=== PATIENT | male | born 1970 | race Two or more races ===

== ENCOUNTER 2018-05-10 19:55 | Inpatient (IN) | payer MEDICAID, OTHER ==
[~2018-05-10] VITALS: Ht 170.2 cm; Wt 82.0 kg
[2018-05-10] MEDS ORDERED: OMNIPAQUE 350 MG/ML, 100ML BOTTLE ONE (20:42)
[2018-05-10 21:01] LABS: BASOPHILS # (AUTO) 0.05 x10^3/uL (0-0.1); BASOPHILS % (AUTO) 1 % (0-1); EOSINOPHILS # (AUTO) 0.14 x10^3/uL (0-0.4); EOSINOPHILS % (AUTO) 2 % (1-7); LYMPHOCYTES # (AUTO) 3.03 x10^3/uL (1-3.4); LYMPHOCYTES % (AUTO) 36 % (22-44); MD NO; MEAN CORPUSCULAR HEMOGLOBIN 30.8 pg (27.5-34.5); MEAN CORPUSCULAR HGB CONC 34.3 g/dL (33.2-36.2); MEAN CORPUSCULAR VOLUME 89.8 fL (81-97); MEAN PLATELET VOLUME 10.3 fL (7.4-10.4); MONOCYTES # (AUTO) 0.55 x10^3/uL (0.2-0.8); MONOCYTES % (AUTO) 7 % (2-9); NEUTROPHILS # (AUTO) 4.61 x10^3/uL (1.8-6.8); NEUTROPHILS % (AUTO) 55 % (42-75); PLATELET COUNT 187 x10^3/uL (130-400); RED BLOOD COUNT 5.26 x10^6/uL (4.38-5.82); RED CELL DISTRIBUTION WIDTH 12.3 % (9.4-14.8)
[2018-05-10 21:09] LABS: ALBUMIN 4.1 g/dL (3.4-5.0); ANION GAP 7 mmol/L (5-15); CALCIUM 8.3 mg/dL (8.5-10.1); CHLORIDE 108 mmol/L (98-107); CREATININE 0.74 mg/dL (0.7-1.3)
[2018-05-11 00:23] VITALS: BP 138/86
[2018-05-11] MEDS ORDERED: ONDANSETRON ODT 4 MG PO PRN (01:00)
[2018-05-11] MEDS ORDERED: POLYETHYLENE GLYCOL 17 GM PACKET PO PRN (01:00)
[2018-05-11] MEDS ORDERED: DOCUSATE 100 MG CAPSULE PO PRN (01:00)
[2018-05-11] MEDS ORDERED: ACETAMINOPHEN 325 MG TABLET PO PRN (01:00)
[2018-05-11] MEDS ORDERED: morphine SULFATE 10 MG/ML, 1ML IVPush PRN (01:00)
[2018-05-11] MEDS ORDERED: BISACODYL 10 MG SUPP PR PRN (01:00)
[2018-05-11] MEDS ORDERED: hydrALAzine 20 MG/ML, 1ML IVPush PRN (01:00)
[2018-05-11] MEDS ORDERED: ONDANSETRON 2MG/ML, 2ML IVPush PRN (01:00)
[2018-05-11 01:31] LABS: FREE T4 (FREE THYROXINE) 1.05 ng/dL (0.76-1.46); THYROID STIMULATING HORMONE 2.38 mIU/L (0.358-3.740)
[2018-05-11 01:32] VITALS: BP 130/80
[2018-05-11 01:40] LABS: HEMOGLOBIN A1C 5.4 % (4.2-6.3)
[2018-05-11 07:42] VITALS: BP 125/78
[2018-05-11 11:50] LABS: MICROSCOPIC NOT IND
[2018-05-11 11:56] LABS: CULTURE INDICATED? NO
[2018-05-11 12:50] VITALS: BP 128/78
[2018-05-11] MEDS: OXYcodone/APAP 5/325MG TABLET PO PRN ×3 (13:44→20:03)
[2018-05-11] MEDS ORDERED: LIDOCAINE-MPF 1%, 2ML ONE (16:34)
[2018-05-11 19:27] VITALS: BP 149/80
[2018-05-12] MEDS: OXYcodone/APAP 5/325MG TABLET PO PRN ×2 (00:37→11:20)
[2018-05-12 01:53] VITALS: BP 147/87
[2018-05-12 04:21] LABS: ALANINE AMINOTRANSFERASE 39 U/L (12-78); ALBUMIN 3.6 g/dL (3.4-5.0); ANION GAP 8 mmol/L (5-15); CALCIUM 8.5 mg/dL (8.5-10.1); CHLORIDE 107 mmol/L (98-107); CHOLESTEROL, TOTAL 160 mg/dL (140-239); CREATININE 0.89 mg/dL (0.7-1.3)
[2018-05-12 04:24] LABS: ALKALINE PHOSPHATASE 122 U/L (45-117); BILIRUBIN,TOTAL 0.4 mg/dL (0.2-1.0); HDL CHOL % 20 % (26-37); HDL CHOLESTEROL (DIRECT) 32 mg/dL (40-60); LDL CHOLESTEROL,CALCULATED 94 mg/dL (54-169); LDL/HDL RATIO 2.9 (0.5-3.0); TOTAL PROTEIN 7.4 g/dL (6.4-8.2); TRIGLYCERIDES 169 mg/dL (50-200); VLDL CHOLESTEROL 34 mg/dL (0-25)
[2018-05-12 04:33] LABS: BASOPHILS # (AUTO) 0.03 x10^3/uL (0-0.1); BASOPHILS % (AUTO) 0 % (0-1); EOSINOPHILS # (AUTO) 0.14 x10^3/uL (0-0.4); EOSINOPHILS % (AUTO) 2 % (1-7); LYMPHOCYTES # (AUTO) 2.61 x10^3/uL (1-3.4); LYMPHOCYTES % (AUTO) 35 % (22-44); MD NO; MEAN CORPUSCULAR HEMOGLOBIN 31.4 pg (27.5-34.5); MEAN CORPUSCULAR HGB CONC 34.7 g/dL (33.2-36.2); MEAN CORPUSCULAR VOLUME 90.4 fL (81-97); MEAN PLATELET VOLUME 10.7 fL (7.4-10.4); MONOCYTES # (AUTO) 0.61 x10^3/uL (0.2-0.8); MONOCYTES % (AUTO) 8 % (2-9); NEUTROPHILS # (AUTO) 4.13 x10^3/uL (1.8-6.8); NEUTROPHILS % (AUTO) 55 % (42-75); PLATELET COUNT 170 x10^3/uL (130-400); RED CELL DISTRIBUTION WIDTH 12.4 % (9.4-14.8)
[2018-05-12 07:29] VITALS: BP 121/78
[2018-05-12 13:47] VITALS: BP 131/76
[2018-05-12 19:37] VITALS: BP 125/72
[2018-05-13 01:45] VITALS: BP 135/85
[2018-05-13 06:30] VITALS: BP_SYST 130; BP_SYST 160; BP_DIAS 146; BP_DIAS 78
[2018-05-13 12:50] VITALS: BP 155/92
[2018-05-13] MEDS: OXYcodone/APAP 5/325MG TABLET PO PRN ×2 (13:46→18:52)
[2018-05-13 19:55] VITALS: BP 155/92
[2018-05-14] MEDS: OXYcodone/APAP 5/325MG TABLET PO PRN ×3 (00:40→20:02)
[2018-05-14 01:51] VITALS: BP 144/89
[2018-05-14 07:55] VITALS: BP 116/79
[2018-05-14 12:50] VITALS: BP 130/85
[2018-05-14 20:00] VITALS: BP 117/65
[2018-05-14 20:45] VITALS: BP 145/82
[2018-05-15 02:44] VITALS: BP 135/70
[2018-05-15] MEDS: OXYcodone/APAP 5/325MG TABLET PO PRN ×3 (02:53→21:35)
[2018-05-15 08:09] VITALS: BP 129/84
[2018-05-15] MEDS ORDERED: LIDOCAINE 2%, 20ML ONE (08:56)
[2018-05-15] MEDS ORDERED: MIDAZOLAM 1 MG/ML, 5ML ONE ×2 (09:06)
[2018-05-15] MEDS ORDERED: FLUMAZENIL 0.1 MG/1 ML, 5ML ONE (09:06)
[2018-05-15] MEDS ORDERED: FENTANYL PF 100 MCG/2ML ONE (09:06)
[2018-05-15] MEDS ORDERED: NALOXONE 1 MG/ML, 2ML ONE (09:07)
[2018-05-15 10:44] VITALS: BP 106/70
[2018-05-15 11:00] VITALS: BP 115/71
[2018-05-15] MEDS ORDERED: OMNIPAQUE 350 MG/ML, 100ML BOTTLE ONE (18:00)
[2018-05-15 20:24] VITALS: BP 128/76
[2018-05-16 02:59] VITALS: BP 121/79
[2018-05-16 07:46] VITALS: BP 106/74
[2018-05-16] MEDS: OXYcodone/APAP 5/325MG TABLET PO PRN (07:47)
[2018-05-16] MEDS ORDERED: ACET-1600 PO (11:28)
[2018-05-16] MEDS ORDERED: PRED20TA PO (11:28)
[2018-05-16 14:18] VITALS: BP 119/86
== END 2018-05-16 14:40 | disposition home or self-care (01) | DRG 842 ==
LOC: ED 22:16 → EDIP 23:31 → 3NW 05-11 00:07
PROVIDERS: ADMIT Internal Medicine; ATTEND Internal Medicine
PROC: 0WB63ZX Excision of Neck, Percutaneous Approach, Diagnostic (ICD-10-PCS; principal; 2018-05-11)
PROC: BH4CZZZ Ultrasonography of Head and Neck (ICD-10-PCS; 2018-05-11)
PROC: 07DR3ZX Extraction of Iliac Bone Marrow, Percutaneous Approach, Diagnostic (ICD-10-PCS; 2018-05-15)
DX: C85.11 Unspecified B-cell lymphoma, lymph nodes of head, face, and neck (principal); E83.51 Hypocalcemia; R79.89 Other specified abnormal findings of blood chemistry
CPT/HCPCS: 36415; 38222; 70491; 71045; 71260; 74177; 76942; 77012; 80048; 80053; 80061; 80074; 81003; 82040; 82232; 83036; 83615; 83735; 84439; 84443; 84550; 85025; 85060; 85097; 86480; 87015; 87070; 87116; 87176; 87205; 87206; 87806; 88237; 88264; 88280; 88305; 88311; 88313; 88341; 88342; 88360; 93005; 99156; 99157; 99285; J2250; J3010; J3490; Q9967; G0461; G0475; J2270; J2310; J7512